=== PATIENT | male | born 1995 | race Caucasian/White ===

== ENCOUNTER 2016-08-02 19:10 | Emergency (ER) | payer BC, OTHER ==
[~2016-08-02] VITALS: Ht 182.9 cm; Wt 68.0 kg
[2016-08-02] MEDS ORDERED: IBUPROFEN 600 MG TAB PO ONE (21:00)
[2016-08-02 23:36] VITALS: BP 120/71
== END 2016-08-02 23:42 | disposition home or self-care (01) ==
LOC: EDBD 19:10 → ER 19:20
DX: S16.1XXA Strain of muscle, fascia and tendon at neck level, initial encounter (principal); S00.83XA Contusion of other part of head, initial encounter; M62.838 Other muscle spasm; Z88.1 Allergy status to other antibiotic agents; V49.59XA Passenger injured in collision with other motor vehicles in traffic accident, initial encounter; Y93.89 Activity, other specified; Y99.8 Other external cause status; Y92.488 Other paved roadways as the place of occurrence of the external cause
CPT/HCPCS: 70450; 72125